=== PATIENT | male | born 1990 | race Caucasian/White ===

== ENCOUNTER 2019-12-01 15:43 | Emergency (ER) | payer OTHER ==
[~2019-12-01] VITALS: Ht 162.6 cm; Wt 108.9 kg
[2019-12-01 15:52] VITALS: BP 141/78
[2019-12-01] MEDS ORDERED: KETOROLAC TROMETH 60MG/2ML VIAL IM ONE (17:00)
== END 2019-12-01 17:54 | disposition home or self-care (01) ==
LOC: EDBD 15:43 → ER 15:43
DX: S33.5XXA Sprain of ligaments of lumbar spine, initial encounter (principal); S80.812A Abrasion, left lower leg, initial encounter; V49.9XXA Car occupant (driver) (passenger) injured in unspecified traffic accident, initial encounter; Y92.89 Other specified places as the place of occurrence of the external cause; Y99.8 Other external cause status
CPT/HCPCS: 72100; 96372; 99283; J1885